=== PATIENT | female | born 1950 | race Caucasian/White ===

== ENCOUNTER 2019-06-02 21:49 | Emergency (ER) | payer MEDICARE, OTHER ==
[~2019-06-02] VITALS: Ht 157.5 cm; Wt 97.7 kg
[~2019-06-02 21:49] MED LIST: AMLO-150 PO; ASCO100019 PO; CYCL-259 PO; LOSA1TAB7 PO; MAGN84TA6 PO; MULT-658 PO; OMEG1CAP23 PO; OMEP-110 PO; POTA25TA4 PO; SIMV20TA19 PO; VITA1TAB14 PO; ZOLP10TA PO
[2019-06-02 21:58] VITALS: BP 136/46
[2019-06-02] MEDS ORDERED: HYDROcodone/APAP 5/325 TABLET ONE (22:45)
--- NOTE | 2019-06-02 22:47 | NUR ---
ASSISTED TO BR VIA W/C. PT REQUESTING PAIN MEDS. ORDER RECEIVED. PT MEDICATED PER APR AND SPLINT TO BE PLACED.
[2019-06-02] MEDS ORDERED: HYDROcodone/APAP 5/325 TABLET PO ONE (23:00)
--- NOTE | 2019-06-02 23:31 | NUR ---
TASK RN: SPLINT PLACED BY TECH. +SENSATION IN TOES, TOES PINK. DC EDUCATION PROVIDED, PT DEMONSTRATES UNDERSTANDING. [facility] WHEELED TO DC WITH RN AND SO. SO TO TRANSPORT PT HOME.
== END 2019-06-02 23:33 | disposition home or self-care (01) ==
LOC: ED 22:32
DX: S82.62XA Displaced fracture of lateral malleolus of left fibula, initial encounter for closed fracture (principal); W01.0XXA Fall on same level from slipping, tripping and stumbling without subsequent striking against object, initial encounter; Y93.89 Activity, other specified; Y92.009 Unspecified place in unspecified non-institutional (private) residence as the place of occurrence of the external cause; Y99.8 Other external cause status
CPT/HCPCS: 29505; 29515; 99283; 99284

== ENCOUNTER 2019-06-29 09:11 | Inpatient (IN) | payer MEDICARE ==
[~2019-06-29] VITALS: Ht 157.5 cm; Wt 97.9 kg
--- NOTE | 2019-06-29 09:54 | NUR ---
PT HERE FOR SOB/FEVER OF 100.0/BODY ACHES. THIS ALL BEGAN LAST NIGHT. PT WENT TO URGENT CARE THIS AM FOR COVID TEST. ERPROVIDER IN TO EVAL PT. AWAITING ORDERS
[2019-06-29] MEDS ORDERED: SODIUM CHLORIDE FLUSH 10ML SYR IVF ONE (10:00)
[2019-06-29 10:38] LABS: RAPID INFLUENZA A Negative (Negative); RAPID INFLUENZA B Negative (Negative)
[2019-06-29 11:04] LABS: ALANINE AMINOTRANSFERASE 18 U/L (12-78); ALBUMIN 3.2 g/dL (3.4-5.0); ANION GAP 7 mmol/L (5-15); CALCIUM 9.3 mg/dL (8.5-10.1); CHLORIDE 105 mmol/L (98-107); CREATININE 0.84 mg/dL (0.55-1.02)
[2019-06-29 11:09] LABS: ALKALINE PHOSPHATASE 75 U/L (45-117); BILIRUBIN,TOTAL 0.9 mg/dL (0.2-1.0); TOTAL PROTEIN 7.8 g/dL (6.4-8.2); TROPONIN I < 0.015 ng/mL (0.000-0.045)
[2019-06-29 11:14] LABS: D-DIMER (DIC) 1.74 ug/mlFEU (0.00-0.52); PROTIME 10.5 Seconds (9.6-11.5)
--- NOTE | 2019-06-29 11:21 | NUR ---
PT RESTING ON GURNEY AT THIS TIME, VSS, NAD NOTED. RA REMAINS 92-92%
--- NOTE | 2019-06-29 11:38 | NUR ---
PIV INITIATED, PT TO GO TO CTA
--- NOTE | 2019-06-29 11:53 | NUR ---
CT WAITING FOR 20 GA IV FOR CTA
[2019-06-29 12:15] LABS: BASOPHILS # (AUTO) 0.04 x10^3/uL (0-0.1); BASOPHILS % (AUTO) 0 % (0-1); EOSINOPHILS # (AUTO) 0.04 x10^3/uL (0-0.4); EOSINOPHILS % (AUTO) 0 % (1-7); LYMPHOCYTES # (AUTO) 2.19 x10^3/uL (1-3.4); LYMPHOCYTES % (AUTO) 18 % (22-44); MD NO; MEAN CORPUSCULAR HEMOGLOBIN 31.2 pg (27.0-34.8); MEAN CORPUSCULAR VOLUME 94.6 fL (80-100); MEAN PLATELET VOLUME 10.2 fL (7.4-10.4); MONOCYTES # (AUTO) 0.86 x10^3/uL (0.2-0.8); MONOCYTES % (AUTO) 7 % (2-9); NEUTROPHILS # (AUTO) 9.33 x10^3/uL (1.8-6.8); NEUTROPHILS % (AUTO) 75 % (42-75); PLATELET COUNT 285 x10^3/uL (130-400); RED BLOOD COUNT 4.62 x10^6/uL (3.82-5.3); RED CELL DISTRIBUTION WIDTH 13.6 % (9.6-15.2)
[2019-06-29] MEDS ORDERED: OMNIPAQUE 350 MG/ML, 100ML BOTTLE ONE (13:08)
--- NOTE | 2019-06-29 13:57 | NUR ---
PT ASSISTED TO BEDSIDE COMMODE, PT TOLERATED WELL. ERMD TO UPDATE PT ON POC, ANTICIPATE ADMIT, PT TO BE STARTED ON HEPARIN GTT FOR MULTIPLE PE
--- NOTE | 2019-06-29 14:15 | NUR ---
STANDING SCALE WEIGHT OBTAINED
[2019-06-29] MEDS ORDERED: SODIUM CHLORIDE FLUSH 10ML SYR IVF PRN (15:00)
--- NOTE | 2019-06-29 15:15 | NUR ---
DELAY IN CARE, PHARM CALLED TO UPDATE HEPARIN GTT ORDER. PT DOES NOT NEED ACS PROTOCOL, AWAITING PHARMACY TO UPDATE IN MAR
[2019-06-29] MEDS ORDERED: HEPARIN 5,000 UNITS/ML, 1ML ONE (15:26)
[2019-06-29] MEDS ORDERED: HEPARIN 25,000 UNITS/250ML PMX 250 ML ONE (15:26)
[2019-06-29] MEDS ORDERED: HEPARIN 5,000 UNITS/ML, 1ML IV ONE ×2 (15:30)
[2019-06-29] MEDS ORDERED: IBUPROFEN 600 MG TABLET PO PRN (15:30)
[2019-06-29] MEDS ORDERED: ENALAPRILAT 1.25 MG/ML, 2ML IVPush PRN (15:30)
[2019-06-29] MEDS ORDERED: HEPARIN 5,000 UNITS/ML, 1ML IV PRN (15:30)
[2019-06-29] MEDS ORDERED: HEPARIN 25,000 UNITS/250ML PMX 250 ML IV PRN ×2 (15:30)
[2019-06-29] MEDS ORDERED: PRAV10TA2 PO (16:04)
--- NOTE | 2019-06-29 17:40 | NUR ---
REPORT GIVEN TO GAVIN COOPER
[2019-06-29 19:54] VITALS: BP 116/59
[2019-06-29] MEDS: PRAVASTATIN 20 MG TABLET PO SCH (20:15)
[2019-06-29] MEDS: ACETAMINOPHEN 325 MG TABLET PO PRN (20:15)
[2019-06-29] MEDS: HEPARIN 5,000 UNITS/ML, 1ML IV PRN (22:53)
[2019-06-30 00:58] VITALS: BP 103/56
[2019-06-30] MEDS: ACETAMINOPHEN 325 MG TABLET PO PRN ×4 (04:13→17:06)
[2019-06-30] MEDS: HEPARIN 5,000 UNITS/ML, 1ML IV PRN (05:54)
[2019-06-30] MEDS ORDERED: OMEPRAZOLE 20 MG CAPSULE.DR PO SCH (07:00)
[2019-06-30 07:49] VITALS: BP 119/50
[2019-06-30] MEDS: HYDROCHLOROTHIAZIDE 12.5 MG CAPSULE PO SCH (07:53)
[2019-06-30] MEDS: AMLODIPINE 2.5 MG TABLET PO SCH (07:54)
[2019-06-30] MEDS: MULTIVITAMIN 1 TABLET PO SCH (07:54)
[2019-06-30] MEDS: LOSARTAN 25MG TABLET PO SCH (07:54)
[2019-06-30] MEDS ORDERED: OXYcodone IR 5MG TABLET ONE (08:27)
[2019-06-30] MEDS: OXYcodone IR 5MG TABLET PO PRN ×4 (08:30→22:21)
[2019-06-30] MEDS ORDERED: LOSARTAN 100 MG TAB PO SCH (09:00)
[2019-06-30] MEDS ORDERED: AMLODIPINE 5 MG TABLET PO SCH (09:00)
[2019-06-30] MEDS: ENOXAPARIN 100 MG/ML SQ SCH (12:35)
[2019-06-30 15:10] VITALS: BP 112/45
[2019-06-30 18:46] VITALS: BP 100/53
[2019-06-30] MEDS ORDERED: ONDANSETRON 2MG/ML, 2ML IVPush ONE (20:00)
[2019-06-30] MEDS: PRAVASTATIN 20 MG TABLET PO SCH (20:47)
[2019-07-01] MEDS: ENOXAPARIN 100 MG/ML SQ SCH ×3 (00:10→23:47)
[2019-07-01 00:12] VITALS: BP 111/60
[2019-07-01] MEDS: ACETAMINOPHEN 325 MG TABLET PO PRN ×4 (06:23→20:42)
[2019-07-01] MEDS: OXYcodone IR 5MG TABLET PO PRN ×4 (06:24→20:42)
[2019-07-01 07:52] VITALS: BP 114/56
[2019-07-01] MEDS: AMLODIPINE 2.5 MG TABLET PO SCH (08:05)
[2019-07-01] MEDS: OMEPRAZOLE 20 MG CAPSULE.DR PO SCH (08:05)
[2019-07-01] MEDS: LOSARTAN 25MG TABLET PO SCH (08:05)
[2019-07-01] MEDS: MULTIVITAMIN 1 TABLET PO SCH (08:06)
[2019-07-01] MEDS: HYDROCHLOROTHIAZIDE 12.5 MG CAPSULE PO SCH (08:06)
[2019-07-01 12:06] VITALS: BP 111/53
[2019-07-01] MEDS: ONDANSETRON 2MG/ML, 2ML IVPush PRN ×2 (15:30→20:42)
[2019-07-01 18:38] VITALS: BP 107/61
[2019-07-01 20:40] VITALS: BP 103/43
[2019-07-01] MEDS: PRAVASTATIN 20 MG TABLET PO SCH (20:42)
[2019-07-02 00:19] VITALS: BP 127/55
[2019-07-02] MEDS: ONDANSETRON 2MG/ML, 2ML IVPush PRN ×5 (00:29→20:37)
[2019-07-02] MEDS: OXYcodone IR 5MG TABLET PO PRN ×5 (00:30→20:37)
[2019-07-02] MEDS: ACETAMINOPHEN 325 MG TABLET PO PRN ×4 (00:30→20:37)
[2019-07-02] MEDS ORDERED: ACETAMINOPHEN 650 MG/20.3 ML UDC ONE (06:15)
[2019-07-02] MEDS ORDERED: ALENDRONATE 70 MG TABLET PO SCH (06:30)
[2019-07-02 06:48] VITALS: BP 125/55
[2019-07-02] MEDS: OMEPRAZOLE 20 MG CAPSULE.DR PO SCH (07:30)
[2019-07-02] MEDS ORDERED: ACETAMINOPHEN 500 MG TABLET ONE ×2 (08:10→11:10)
[2019-07-02] MEDS: HYDROCHLOROTHIAZIDE 12.5 MG CAPSULE PO SCH (08:22)
[2019-07-02] MEDS: CALCIUM CARBONATE 500 MG TABLET PO SCH ×2 (08:22→20:37)
[2019-07-02] MEDS: LOSARTAN 25MG TABLET PO SCH (08:22)
[2019-07-02] MEDS: MULTIVITAMIN 1 TABLET PO SCH (08:23)
[2019-07-02] MEDS: AMLODIPINE 2.5 MG TABLET PO SCH (08:23)
[2019-07-02] MEDS: ENOXAPARIN 100 MG/ML SQ SCH ×2 (11:05→22:44)
[2019-07-02 12:14] VITALS: BP 119/44
[2019-07-02 18:26] VITALS: BP 113/48
[2019-07-02] MEDS: ZOLPIDEM 10MG TABLET PO PRN (20:37)
[2019-07-02] MEDS: PRAVASTATIN 20 MG TABLET PO SCH (20:37)
[2019-07-03 00:48] VITALS: BP 116/54
[2019-07-03] MEDS: ONDANSETRON 2MG/ML, 2ML IVPush PRN ×5 (00:52→18:25)
[2019-07-03] MEDS: ACETAMINOPHEN 325 MG TABLET PO PRN ×6 (00:52→22:28)
[2019-07-03] MEDS: OXYcodone IR 5MG TABLET PO PRN ×6 (00:52→22:28)
[2019-07-03 05:57] LABS: BASOPHILS # (AUTO) 0.05 x10^3/uL (0-0.1); BASOPHILS % (AUTO) 1 % (0-1); EOSINOPHILS # (AUTO) 0.12 x10^3/uL (0-0.4); EOSINOPHILS % (AUTO) 1 % (1-7); LYMPHOCYTES # (AUTO) 2.67 x10^3/uL (1-3.4); LYMPHOCYTES % (AUTO) 26 % (22-44); MD NO; MEAN CORPUSCULAR HEMOGLOBIN 30.9 pg (27.0-34.8); MEAN CORPUSCULAR HGB CONC 32.6 g/dL (32.4-35.8); MEAN CORPUSCULAR VOLUME 94.8 fL (80-100); MEAN PLATELET VOLUME 9.9 fL (7.4-10.4); MONOCYTES # (AUTO) 0.93 x10^3/uL (0.2-0.8); MONOCYTES % (AUTO) 9 % (2-9); NEUTROPHILS # (AUTO) 6.63 x10^3/uL (1.8-6.8); NEUTROPHILS % (AUTO) 64 % (42-75); PLATELET COUNT 349 x10^3/uL (130-400); RED BLOOD COUNT 4.51 x10^6/uL (3.82-5.3); RED CELL DISTRIBUTION WIDTH 13.7 % (9.6-15.2)
[2019-07-03 06:01] LABS: CALCIUM 9.5 mg/dL (8.5-10.1); CHLORIDE 101 mmol/L (98-107)
[2019-07-03 06:05] LABS: ANION GAP 5 mmol/L (5-15); CREATININE 0.75 mg/dL (0.55-1.02)
[2019-07-03 06:36] VITALS: BP 106/46
[2019-07-03] MEDS: OMEPRAZOLE 20 MG CAPSULE.DR PO SCH (06:37)
[2019-07-03] MEDS: MULTIVITAMIN 1 TABLET PO SCH (08:54)
[2019-07-03] MEDS: CALCIUM CARBONATE 500 MG TABLET PO SCH ×2 (08:54→20:45)
[2019-07-03] MEDS: LOSARTAN 25MG TABLET PO SCH (08:54)
[2019-07-03] MEDS: HYDROCHLOROTHIAZIDE 12.5 MG CAPSULE PO SCH (08:54)
[2019-07-03] MEDS: AMLODIPINE 2.5 MG TABLET PO SCH (08:54)
[2019-07-03] MEDS: ENOXAPARIN 100 MG/ML SQ SCH (12:05)
[2019-07-03 12:09] VITALS: BP 110/45
[2019-07-03 19:12] VITALS: BP 108/51
[2019-07-03] MEDS: ZOLPIDEM 10MG TABLET PO PRN (20:45)
[2019-07-03] MEDS: PRAVASTATIN 20 MG TABLET PO SCH (20:45)
[2019-07-03] MEDS ORDERED: PROMETHAZINE 25 MG/ML, 1ML ONE (22:22)
[2019-07-03] MEDS: PROMETHAZINE 25 MG/ML, 1ML IM PRN (22:29)
[2019-07-04 00:13] VITALS: BP 111/52
[2019-07-04] MEDS: ENOXAPARIN 100 MG/ML SQ SCH ×3 (00:37→22:55)
[2019-07-04] MEDS: PROMETHAZINE 25 MG/ML, 1ML IM PRN ×5 (02:48→22:55)
[2019-07-04] MEDS: ACETAMINOPHEN 325 MG TABLET PO PRN ×5 (02:48→22:54)
[2019-07-04] MEDS: OXYcodone IR 5MG TABLET PO PRN ×5 (02:49→22:54)
[2019-07-04 07:33] VITALS: BP 147/54
[2019-07-04] MEDS: HYDROCHLOROTHIAZIDE 12.5 MG CAPSULE PO SCH (08:53)
[2019-07-04] MEDS: AMLODIPINE 2.5 MG TABLET PO SCH (08:53)
[2019-07-04] MEDS: OMEPRAZOLE 20 MG CAPSULE.DR PO SCH (08:53)
[2019-07-04] MEDS: LOSARTAN 25MG TABLET PO SCH (08:53)
[2019-07-04] MEDS: CALCIUM CARBONATE 500 MG TABLET PO SCH ×2 (08:53→22:53)
[2019-07-04] MEDS: MULTIVITAMIN 1 TABLET PO SCH (08:53)
[2019-07-04 13:35] VITALS: BP 107/45
[2019-07-04 20:07] VITALS: BP 122/53
[2019-07-04] MEDS: PRAVASTATIN 20 MG TABLET PO SCH (22:53)
[2019-07-05] VITALS (7 sets, daily range): BP systolic 100–150; BP diastolic 54–75
[2019-07-05] MEDS: ACETAMINOPHEN 325 MG TABLET PO PRN ×5 (03:48→23:51)
[2019-07-05] MEDS: OXYcodone IR 5MG TABLET PO PRN ×5 (03:49→23:35)
[2019-07-05] MEDS: PROMETHAZINE 25 MG/ML, 1ML IM PRN ×5 (03:49→23:36)
[2019-07-05] MEDS: LOSARTAN 25MG TABLET PO SCH (08:42)
[2019-07-05] MEDS: AMLODIPINE 2.5 MG TABLET PO SCH (08:42)
[2019-07-05] MEDS: MULTIVITAMIN 1 TABLET PO SCH (08:42)
[2019-07-05] MEDS: HYDROCHLOROTHIAZIDE 12.5 MG CAPSULE PO SCH (08:43)
[2019-07-05] MEDS: CALCIUM CARBONATE 500 MG TABLET PO SCH ×2 (08:43→20:59)
[2019-07-05] MEDS: OMEPRAZOLE 20 MG CAPSULE.DR PO SCH (08:43)
[2019-07-05] MEDS: ENOXAPARIN 100 MG/ML SQ SCH ×2 (12:17→23:36)
[2019-07-05] MEDS: PRAVASTATIN 20 MG TABLET PO SCH (20:59)
[2019-07-06 00:31] VITALS: BP 123/77
[2019-07-06] MEDS: ACETAMINOPHEN 325 MG TABLET PO PRN ×2 (05:46→12:32)
[2019-07-06] MEDS: OXYcodone IR 5MG TABLET PO PRN (05:47)
[2019-07-06] MEDS: PROMETHAZINE 25 MG/ML, 1ML IM PRN (05:49)
[2019-07-06] MEDS ORDERED: LIDOCAINE-MPF 1%, 5ML ONE (08:16)
[2019-07-06] MEDS ORDERED: LOSARTAN 50MG TABLET PO SCH (09:00)
[2019-07-06 09:41] VITALS: BP 130/76
[2019-07-06] MEDS: AMLODIPINE 2.5 MG TABLET PO SCH (09:43)
[2019-07-06] MEDS: HYDROCHLOROTHIAZIDE 12.5 MG CAPSULE PO SCH (09:43)
[2019-07-06] MEDS: OMEPRAZOLE 20 MG CAPSULE.DR PO SCH (09:44)
[2019-07-06] MEDS: MULTIVITAMIN 1 TABLET PO SCH (09:44)
[2019-07-06] MEDS: CALCIUM CARBONATE 500 MG TABLET PO SCH (09:44)
[2019-07-06] MEDS: ENOXAPARIN 100 MG/ML SQ SCH (11:50)
[2019-07-06] MEDS ORDERED: DOCUSATE 100 MG CAPSULE PO SCH (12:00)
[2019-07-06] MEDS ORDERED: IBUPROFEN 200 MG TABLET PO PRN (12:00)
[2019-07-06 14:45] VITALS: BP 105/65
[2019-07-06] MEDS ORDERED: AMLO2.5T5 PO (15:45)
[2019-07-06] MEDS ORDERED: OXYC5TAB3 PO (15:45)
[2019-07-06] MEDS ORDERED: DOCU100C33 PO (15:45)
[2019-07-06] MEDS ORDERED: ONDA4TAB13 SL (15:45)
[2019-07-06] MEDS ORDERED: ALEN70TA6 PO (15:45)
[2019-07-06] MEDS ORDERED: APIX5TAB4 PO (15:45)
[2019-07-06] MEDS ORDERED: IBUP-1902 PO (15:53)
[2019-07-06] MEDS ORDERED: ACET325T26 PO (15:53)
== END 2019-07-06 16:30 | disposition home or self-care (01) | DRG 175 ==
LOC: ED 11:06 → EDIP 14:55 → 4NW 18:26 → 4EST 07-05 10:34 → DCLOUNGE 07-06 16:23
PROVIDERS: ADMIT Family Medicine; ATTEND Family Medicine
PROC: 0G9K3ZX Drainage of Thyroid Gland, Percutaneous Approach, Diagnostic (ICD-10-PCS; principal; 2019-07-06)
DX: I26.99 Other pulmonary embolism without acute cor pulmonale (principal); J96.01 Acute respiratory failure with hypoxia; D68.59 Other primary thrombophilia; Z20.828 Contact with and (suspected) exposure to other viral communicable diseases; M81.0 Age-related osteoporosis without current pathological fracture; E04.1 Nontoxic single thyroid nodule; E78.5 Hyperlipidemia, unspecified; D72.829 Elevated white blood cell count, unspecified; Z90.49 Acquired absence of other specified parts of digestive tract; Z79.83 Long term (current) use of bisphosphonates; Z79.899 Other long term (current) drug therapy
CPT/HCPCS: 10005; 36415; 60300; 71045; 71275; 76536; 80048; 80053; 82728; 83605; 83615; 84145; 84443; 84484; 85025; 85049; 85379; 85384; 85520; 85610; 85730; 86140; 87040; 87400; 88112; 88305; 93005; 93308; 93321; 93325; 96374; 99285; G0378; J1644; J1650; J2405; J2550; Q9967

== ENCOUNTER → 2020-01-10 | Outpatient (CLI) | payer MEDICARE ==
[~2020-01-10] MED LIST changes: +ACET325T26 PO; +ALEN70TA66 PO; +AMLO2.5T5 PO; +APIX5TAB4 PO; +DOCU100C33 PO; +IBUP-1902 PO; +ONDA4TAB13 SL; +OXYC5TAB3 PO; +PRAV10TA2 PO
== END | disposition home or self-care (01) ==
LOC: RAD 13:27
PROVIDERS: ATTEND Internal Medicine Cardiovascular Disease
DX: J44.9 Chronic obstructive pulmonary disease, unspecified (principal); I26.99 Other pulmonary embolism without acute cor pulmonale; R06.02 Shortness of breath
CPT/HCPCS: 78582; A9540; A9558

== ENCOUNTER → 2020-02-05 | Outpatient (CLI) | payer MEDICARE | END | disposition home or self-care (01) | LOC: RAD 09:45 | PROVIDERS: ATTEND Family Medicine | DX: E04.1 Nontoxic single thyroid nodule (principal); E05.90 Thyrotoxicosis, unspecified without thyrotoxic crisis or storm | CPT/HCPCS: 78013; A9516 ==

== ENCOUNTER → 2020-02-07 | Outpatient (CLI) | payer MEDICARE | END | disposition home or self-care (01) | LOC: CARD 07:58 | PROVIDERS: ATTEND Internal Medicine Cardiovascular Disease | DX: I08.1 Rheumatic disorders of both mitral and tricuspid valves (principal); I25.89 Other forms of chronic ischemic heart disease; I26.99 Other pulmonary embolism without acute cor pulmonale; R73.03 Prediabetes; E78.5 Hyperlipidemia, unspecified; I11.9 Hypertensive heart disease without heart failure; Z79.01 Long term (current) use of anticoagulants | CPT/HCPCS: 78452; 93017; 93306; A9502 ==

== ENCOUNTER 2020-03-14 08:21 | Day surgery (SDC) | payer MEDICARE ==
[~2020-03-14] VITALS: Ht 157.5 cm; Wt 97.7 kg
[~2020-03-14 08:21] MED LIST changes: -ALEN70TA66 PO; +ALEN70TA77 PO; -CYCL-259 PO; +CYCL10TA2 PO; -OXYC5TAB3 PO; +OXYC5TAB98 PO
[2020-03-14 08:55] VITALS: BP 154/84
[2020-03-14] MEDS ORDERED: SODIUM CHLORIDE 0.9% 1,000 ML IV SCH ×2 (09:00→12:00)
[2020-03-14] MEDS ORDERED: DIPHENHYDRAMINE 50 MG/ML, 1ML IVPush ONE (09:00)
[2020-03-14] MEDS ORDERED: VERAPAMIL 2.5 MG/ML, 2ML ONE (09:11)
[2020-03-14] MEDS ORDERED: MIDAZOLAM 1 MG/ML, 2ML ONE (09:11)
[2020-03-14] MEDS ORDERED: FENTANYL PF 100 MCG/2ML ONE (09:11)
[2020-03-14] MEDS ORDERED: LIDOCAINE 2%, 20ML ONE (09:12)
[2020-03-14] MEDS ORDERED: HEPARIN 1,000 UNITS/ML, 10ML ONE (09:12)
[2020-03-14] MEDS ORDERED: APIX5TAB PO (09:13)
[2020-03-14] MEDS ORDERED: POTA90TA2 PO (09:13)
[2020-03-14] MEDS ORDERED: DIPHENHYDRAMINE 50 MG/ML, 1ML ONE (09:23)
[2020-03-14] MEDS ORDERED: ACETAMINOPHEN 325 MG TABLET ONE (12:19)
[2020-03-14] MEDS ORDERED: ACETAMINOPHEN 325 MG TABLET PO ONE (12:30)
== END 2020-03-14 13:33 | disposition home or self-care (01) ==
LOC: CACL 08:21
PROVIDERS: ATTEND Internal Medicine Cardiovascular Disease
DX: R94.39 Abnormal result of other cardiovascular function study (principal); I10 Essential (primary) hypertension; E66.3 Overweight; Z68.41 Body mass index [BMI] 40.0-44.9, adult; Z79.01 Long term (current) use of anticoagulants; Z79.899 Other long term (current) drug therapy; Z86.718 Personal history of other venous thrombosis and embolism; Z86.711 Personal history of pulmonary embolism; Z87.891 Personal history of nicotine dependence
CPT/HCPCS: 36415; 76937; 82330; 82803; 82947; 83880; 84132; 84295; 85014; 93456; 99156; 99157; C1769; C1894; J1200; J1644; J2250; J3010; Q9967